=== PATIENT | female | born 1975 | race Caucasian/White ===

== ENCOUNTER 2023-10-07 11:07 | Emergency (ER) | payer MEDICAID ==
[~2023-10-07] VITALS: Ht 162.6 cm; Wt 43.5 kg
[2023-10-07 11:36] VITALS: BP 151/96; PULSE 121; RESP 14; TEMP 98.3; O2SAT 100
[2023-10-07 12:35] LABS: BASOPHILS % (AUTO) 0.4 % (0.0-2.0); EOSINOPHILS % (AUTO) 0.1 % (0.0-4.0); HEMATOCRIT 38.9 % (36-48); HEMOGLOBIN 13.2 g/dL (12.0-16.0); LYMPHOCYTES # (AUTO) 1.9 K/uL (2.5-16.5); LYMPHOCYTES % (AUTO) 23.9 % (20.5-51.1); MEAN CORPUSCULAR HEMOGLOBIN 33 pg (27-31); MEAN CORPUSCULAR HGB CONC 34 g/dL (33-37); MEAN CORPUSCULAR VOLUME 97.2 fL (80-94); MONOCYTES # (AUTO) 0.8 K/uL (0.8-1.0); MONOCYTES % (AUTO) 10.1 % (1.7-9.3); NEUTROPHILS # (AUTO) 5.1 K/uL (1.8-7.7); NEUTROPHILS % (AUTO) 65.5 % (42.2-75.2); PLATELET COUNT (AUTO) 225 K/uL (140-450); RED BLOOD CELL COUNT(AUTO) 4.01 MIL/uL (4.20-5.40); RED CELL DISTRIBUTION WIDTH 12.7 % (11.6-13.7); WHITE BLOOD COUNT (AUTO) 7.8 K/uL (4.8-10.8)
[2023-10-07 13:00] VITALS: O2SAT 100
[2023-10-07 13:08] LABS: ANION GAP 20.9 (8-16); CALCIUM 8.9 mg/dL (8.5-10.1); CARBON DIOXIDE 22.7 mmol/L (21-32); CREATININE 0.8 mg/dL (0.6-1.3)
[2023-10-07 13:11] LABS: POTASSIUM 2.6 mmol/L (3.5-5.1)
[2023-10-07 13:20] LABS: ACETAMINOPHEN < 0.5 ug/ml (10-30); ALANINE AMINOTRANSFERASE 14 U/L (12-78); ALBUMIN 4.6 g/dL (3.4-5.0); ALCOHOL, BLOOD < 3 mg/dL (<10); ALKALINE PHOSPHATASE 56 U/L (50-136); ASPARTATE AMINOTRANSFERASE 14 U/L (15-37); BILIRUBIN,DIRECT 0.3 mg/dL (0.0-0.3); LIPASE 23 U/L (16-77); MAGNESIUM 1.9 mg/dL (1.8-2.4); PHOSPHORUS 4.1 mg/dL (2.5-4.9); SALICYLATE < 2.8 mg/dL (2.8-20.0); THYROID STIMULATING HORMONE 1.27 uIU/mL (0.34-3.74); TOTAL BILIRUBIN 2.2 mg/dL (0.0-1.0); TOTAL PROTEIN, SERUM 7.7 g/dL (6.4-8.2)
[2023-10-07] MEDS ORDERED: POTA20TA49 PO (15:44)
[2023-10-07 15:59] VITALS: BP 151/96; PULSE 121; RESP 14; TEMP 98.3; O2SAT 100
== END 2023-10-07 15:58 | disposition home or self-care (01) ==
LOC: MED 11:07
DX: E87.6 Hypokalemia (principal); R63.0 Anorexia; Z79.899 Other long term (current) drug therapy
CPT/HCPCS: 36415; 80048; 80076; 83690; 83735; 84100; 84443; 84484; 85025; 93005; 99284; G0480; G0482

== ENCOUNTER 2023-10-10 18:56 | Inpatient (IN) | payer MEDICAID ==
[~2023-10-10] VITALS: Ht 162.6 cm; Wt 42.6 kg
[~2023-10-10 18:56] MED LIST: POTA20TA49 PO
[2023-10-10 19:44] VITALS: BP 148/102; PULSE 98; RESP 16; TEMP 98.7; O2SAT 100
[2023-10-10] MEDS: NACL 0.9% 1,000 ML IV ONE (20:20)
[2023-10-10 20:52] LABS: BASOPHILS % (AUTO) 0.9 % (0.0-2.0); EOSINOPHILS % (AUTO) 0.1 % (0.0-4.0); HEMATOCRIT 36.9 % (36-48); HEMOGLOBIN 12.5 g/dL (12.0-16.0); LYMPHOCYTES # (AUTO) 0.9 K/uL (2.5-16.5); LYMPHOCYTES % (AUTO) 20.2 % (20.5-51.1); MEAN CORPUSCULAR HEMOGLOBIN 33 pg (27-31); MEAN CORPUSCULAR HGB CONC 34 g/dL (33-37); MEAN CORPUSCULAR VOLUME 97.7 fL (80-94); MONOCYTES # (AUTO) 0.5 K/uL (0.8-1.0); MONOCYTES % (AUTO) 10.2 % (1.7-9.3); NEUTROPHILS # (AUTO) 3.1 K/uL (1.8-7.7); NEUTROPHILS % (AUTO) 68.6 % (42.2-75.2); PLATELET COUNT (AUTO) 229 K/uL (140-450); RED BLOOD CELL COUNT(AUTO) 3.78 MIL/uL (4.20-5.40); RED CELL DISTRIBUTION WIDTH 12.6 % (11.6-13.7); WHITE BLOOD COUNT (AUTO) 4.5 K/uL (4.8-10.8)
[2023-10-10 21:00] LABS: ANION GAP 20.1 (8-16); CALCIUM 9.3 mg/dL (8.5-10.1); CARBON DIOXIDE 24.2 mmol/L (21-32); CREATININE 0.9 mg/dL (0.6-1.3); POTASSIUM 3.3 mmol/L (3.5-5.1)
[2023-10-10 21:04] LABS: PROTHROMBIN TIME 11.2 secs (10.8-13.4)
[2023-10-10 21:05] LABS: INR 1.07 (0.8-1.2)
[2023-10-10 21:16] LABS: ALCOHOL, BLOOD < 3 mg/dL (<10); CREATINE KINASE, TOTAL 202 U/L (26-192); THYROID STIMULATING HORMONE 0.44 uIU/mL (0.34-3.74)
[2023-10-10 21:17] LABS: ACETAMINOPHEN < 0.5 ug/ml (10-30); SALICYLATE < 2.8 mg/dL (2.8-20.0)
[2023-10-10] MEDS ORDERED: ACETAMINOPHEN 325 MG TAB PO PRN (21:20)
[2023-10-10] MEDS ORDERED: LORazepam 2 MG/ML VIAL IVP PRN (21:20)
[2023-10-10] MEDS ORDERED: ONDANSETRON 4 MG/2 ML VIAL IVP PRN (21:20)
[2023-10-10 21:22] LABS: ALBUMIN 4.2 g/dL (3.4-5.0); BILIRUBIN,DIRECT 0.3 mg/dL (0.0-0.3); TOTAL BILIRUBIN 1.8 mg/dL (0.0-1.0); TOTAL PROTEIN, SERUM 7.6 g/dL (6.4-8.2)
[2023-10-10] MEDS: POTASSIUM CHLORIDE 10 MEQ TABER PO ONE (22:35)
[2023-10-10 22:56] VITALS: PULSE 92; RESP 18; O2SAT 98
[2023-10-10] MEDS: KCL 20 MEQ IN 100 mL PREMIX 100 ML IV ONE (22:58)
[2023-10-10] MEDS: NACL 0.9% 1,000 ML IV SCH (23:10)
[2023-10-11] VITALS: BP 139/87; PULSE 92; RESP 18; TEMP 97.8; O2SAT 99
[2023-10-11 04:00] VITALS: BP 132/80; PULSE 85; RESP 18; TEMP 97.6; O2SAT 99
[2023-10-11 07:51] LABS: BASOPHILS # (AUTO) 0.1 K/uL (0.00-0.22); BASOPHILS % (AUTO) 1.3 % (0.0-2.0); EOSINOPHILS % (AUTO) 0.6 % (0.0-4.0); HEMOGLOBIN 12.3 g/dL (12.0-16.0); LYMPHOCYTES # (AUTO) 2.1 K/uL (2.5-16.5); LYMPHOCYTES % (AUTO) 39.2 % (20.5-51.1); MEAN CORPUSCULAR HEMOGLOBIN 33 pg (27-31); MEAN CORPUSCULAR HGB CONC 34 g/dL (33-37); MEAN CORPUSCULAR VOLUME 97.6 fL (80-94); MONOCYTES # (AUTO) 0.6 K/uL (0.8-1.0); MONOCYTES % (AUTO) 11.7 % (1.7-9.3); NEUTROPHILS # (AUTO) 2.5 K/uL (1.8-7.7); NEUTROPHILS % (AUTO) 47.2 % (42.2-75.2); PLATELET COUNT (AUTO) 256 K/uL (140-450); RED BLOOD CELL COUNT(AUTO) 3.69 MIL/uL (4.20-5.40); RED CELL DISTRIBUTION WIDTH 12.6 % (11.6-13.7); WHITE BLOOD COUNT (AUTO) 5.4 K/uL (4.8-10.8)
[2023-10-11 08:08] LABS: ANION GAP 21.1 (8-16); CALCIUM 8.7 mg/dL (8.5-10.1); CARBON DIOXIDE 19.9 mmol/L (21-32); CREATININE 0.6 mg/dL (0.6-1.3)
== END 2023-10-11 08:00 | disposition left against medical advice (07) | DRG 421 ==
LOC: MED 18:56 → MTU 21:24
PROVIDERS: ADMIT Family Medicine; ATTEND Family Medicine
DX: R62.7 Adult failure to thrive (principal); E44.0 Moderate protein-calorie malnutrition; E86.0 Dehydration; E87.6 Hypokalemia; Z68.1 Body mass index [BMI] 19.9 or less, adult
CPT/HCPCS: 36415; 70450; 71045; 80048; 80076; 82550; 82553; 84443; 84484; 85025; 85610; 86900; 86901; 87081; 93005; 96360; 96361; 99285; G0480; G0482; J3480